=== PATIENT | male | born 1980 | race Caucasian/White ===

== ENCOUNTER 2016-10-22 20:03 | Emergency (ER) | payer SELFPAY ==
[~2016-10-22] VITALS: Ht 170.2 cm; Wt 73.0 kg
[~2016-10-22 20:03] MED LIST: Z.0.NO CURRENT MEDS
[2016-10-22 20:06] VITALS: BP 142/84; PULSE 79; RESP 18; TEMP 98.4; O2SAT 99
[2016-10-22 20:15] VITALS: BP 142/84; PULSE 79; RESP 18; TEMP 98.4; O2SAT 99
--- NOTE | 2016-10-22 20:29 | PD ---
HPI Chief Complaint: Skin Problem Time Seen by Provider: 20:20 Travel History International Travel<30 days: No Contact w/Intl Traveler<30days: No Traveled to known affect area: No History of Present Illness HPI 35-year-old male presents to the emergency room for evaluation of an abscess to his back that started 1 week ago and has progressively gotten larger, more painful, and more red every day. His girlfriend squeezed it and got "cottage cheese like" discharge. He also applied drawing salve today. No history of fever, chills, nausea, or vomiting. Unknown last tetanus. History Past Medical History Autoimmune Disease: No Blood Disorders: No Cancer: No Hearing: No Psychiatric: No Immunizations Current: Yes Tetanus Vaccination: > 5 Years Influenza Vaccination: No Vision or Eye Problem: No Past Surgical History Surgical History: No Previous Surgery AICD: No Genitourinary Surgery: No Pacemaker: No Social History Tobacco Use in Home: No Alcohol Use: Yes (weekends) Tobacco Use: No Substance Use: No Allergies-Medications (Allergen,Severity, Reaction): Coded Allergies: No Known Allergies (Unverified , 10/22/16) Reported Meds & Prescriptions Reported Meds & Active Scripts Active No Active Prescriptions or Reported Medications ROS Except as stated in HPI: all other systems reviewed are Neg Physical Exam Narrative GENERAL: Well-nourished, well-developed male in no acute distress. Afebrile. Ambulatory. SKIN: Focused skin assessment warm/dry. There is an indurated area in the mid back which measures about 3 cm in diameter. It is fluctuant but there is no pointing or drainage. There is a zone of inflammation around it but no lymphangitis. HEAD: Normocephalic. EYES: No scleral icterus. No injection or drainage. NECK: Supple, trachea midline. No JVD or lymphadenopathy. CARDIOVASCULAR: Regular rate and rhythm without murmurs, gallops, or rubs. RESPIRATORY: Breath sounds equal bilaterally. No accessory muscle use. PSYCHIATRIC: No delusional thought processes. No hallucinations. Data Data Last Documented VS Vital Signs Date Time Temp Pulse Resp B/P Pulse Ox O2 Delivery O2 Flow Rate FiO2 10/22/16 20:15 98.4 79 18 142/84 99 MDM Medical Decision Making Medical Screen Exam Complete: Yes Emergency Medical Condition: Yes Medical Record Reviewed: Yes Differential Diagnosis Abscess, folliculitis, sebaceous cyst Narrative Course 35-year-old male presents to the emergency room for evaluation of an abscess to his back that started 1 week ago. No systemic signs of infection. Physical exam reveals a moderate abscess without lymphangitis. There is spontaneous drainage. Abscess was drained further, see procedure note for details. Patient discharged with Bactrim and told to follow-up with a PCP return for worsening symptoms. He understands and agrees to plan. Procedures Procedure Narrative INCISION AND DRAINAGE OF ABSCESS: The area was prepped and was sterilely draped. A subcutaneous wheal of 1% lidocaine with a total number 3 mL was used to anesthetize the area properly. A number 11 scalpel was used to make a 1 cm incision across the area of the abscess. The abscess was drained, complex loculations were broken down, and irrigated with normal saline. Cultures were obtained. Sterile dressing applied. Diagnosis Primary Impression: Abscess Referrals: Primary Care Physician Patient Instructions: Abscess (ED), General Instructions Additional Instructions: Rest and drink plenty of fluids. Take Bactrim as directed, until gone. Follow up with a primary care physician. Return to emergency room for worsening symptoms, as discussed. Scripts No Active Prescriptions or Reported Meds Disposition: 01 DISCHARGE HOME Condition: Stable Rose Soto Oct 22, 2016 20:29
[2016-10-22] MEDS ORDERED: LIDOCAINE HCL 1% PF 30 ML VIAL INFIL ONE (20:30)
[2016-10-22] MEDS ORDERED: BACT800T5 PO (20:30)
[2016-10-22] MEDS ORDERED: TETANUS/DIPHTHERIA TOXOID ADULT 0.5 ML VIAL IM ONE (20:30)
== END 2016-10-22 20:46 | disposition home or self-care (01) ==
LOC: PHEFT 20:03
DX: L02.212 Cutaneous abscess of back [any part, except buttock and flank] (principal); B95.62 Methicillin resistant Staphylococcus aureus infection as the cause of diseases classified elsewhere
CPT/HCPCS: 10060; 86403; 87070; 87186; 87205; 90471; 90714